=== PATIENT | female | born 1960 | race Caucasian/White ===

== ENCOUNTER 2016-10-11 12:47 | Emergency (ER) | payer MEDICARE ==
[2016-10-11 12:56] VITALS: BP 132/88
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
--- NOTE | 2016-10-11 14:06 | RAD ---
Indication: RIGHT distal fourth finger post fall. Comparison: July 03, 2014 Technique: 3 views RIGHT fourth finger REPORT AND IMPRESSION: Comminuted minimally displaced fracture tuft of the distal phalanx. Negative for additional fracture or articular malalignment. Distal soft tissue swelling.
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
== END 2016-10-11 14:15 | disposition home or self-care (01) ==
LOC: UCEAST 12:47
DX: S62.604A Fracture of unspecified phalanx of right ring finger, initial encounter for closed fracture (principal); S20.219A Contusion of unspecified front wall of thorax, initial encounter; V26 Motorcycle rider injured in collision with other nonmotor vehicle; F41.9 Anxiety disorder, unspecified
CPT/HCPCS: 73140; 99212; G0463

== ENCOUNTER 2018-09-17 17:30 | Emergency (ER) | payer MEDICARE ==
[2018-09-17 18:03] VITALS: BP 124/84
--- NOTE | 2018-09-17 18:28 | UC ---
General HPI - HPI Summary HPI Summary: RN notes triage - C/O FATIGUE TWO WEEKS AGO (THAT RESOLVED) AND PAIN IN RIGHT FOOT AND HEEL X1 WEEK. PT STATES SHE HAD A TICK ON HERSELF THAT BIT HER (BUT DID NOT ATTACH) ~3 WEEKS AGO. ALSO C/O LEFT ANKLE PAIN THAT STARTED LAST NIGHT. 58 yo female c/o pain in R foot, progressive over the last week. Also last couple days has started to have similar pain starting in L post ankle. She is concerned that may be related to a tick bite, that she sustained 2-3 weeks ago. Bite was on ant abdomen, not sure of type / length of time exactly. Shortly afterwards, Ms. Dunaway had apprx 5 days of extreme exhaustion, unlike anything she has felt before. Has hx discoid lupus, but not sx as above, and no recent new issues. No sob / cp. No new abd issues. No fever /chills. + rash for a few days at site of tick bite. No b/b issues reported. No new p/d/ w. Some symptomatic varicosities in both legs. Notes that her daughter was dx 'd with lyme with similar lower ext pain last year. R 5th finger - fell at [employer] apprx 2 weeks ago. Injured R 5th finger, still hurts to move. Pt is R handed. - History of Current Complaint Chief Complaint: UCLowerExtremity Stated Complaint: FOOT PAIN Time Seen by Provider: 09/17/18 18:28 Hx Obtained From: Patient Hx Last Menstrual Period: menopause Pain Intensity: 8 - Allergy/Home Medications Allergies/Adverse Reactions: Allergies Allergy/AdvReac Type Severity Reaction Status Date / Time No Known Allergies Allergy Verified 09/17/18 18:02 Home Medications: Home Medications Aspirin 81 mg CHEW TAB* [Aspirin Low Dose TAB*] 162 mg PO ONCE PRN 09/17/18 [ History Confirmed 09/17/18] PMH/Surg Hx/FS Hx/Imm Hx Previously Healthy: Yes - see hpi - Surgical History Surgical History: None - Family History Known Family History: Positive: None - see hpi - Social History Alcohol Use: Occasionally Substance Use Type: None Smoking Status (MU): Former Smoker Review of Systems All Other Systems Reviewed And Are Negative: Yes Constitutional: Positive: Other - see hpi Skin: Positive: Other Eyes: Positive: Negative ENT: Positive: Negative Respiratory: Positive: Negative Cardiovascular: Positive: Negative Gastrointestinal: Positive: Negative Genitourinary: Positive: Negative Motor: Positive: Other - see hpi Neurovascular: Positive: Other - see hpi Musculoskeletal: Positive: Other: - see hpi Neurological: Positive: Other - see hpi Psychological: Positive: Negative Is Patient Immunocompromised?: No Physical Exam Triage Information Reviewed: Yes Appearance: Well-Appearing, Well-Nourished Vital Signs: Initial Vital Signs Temp 97.9 F 09/17/18 17:57 Pulse 76 09/17/18 17:57 Resp 16 09/17/18 17:57 BP 124/84 09/17/18 17:57 Pulse Ox 100 09/17/18 17:57 Vital Signs Reviewed: Yes Eye Exam: Normal ENT Exam: Normal Neck exam: Normal - no acute c/o Respiratory Exam: Normal Respiratory: Positive: Chest non-tender, Lungs clear, Normal breath sounds, No respiratory distress, No accessory muscle use Cardiovascular Exam: Normal Cardiovascular: Positive: RRR, No Murmur, Pulses Normal, Brisk Capillary Refill Abdominal Exam: Normal Abdomen Description: Positive: Nontender Musculoskeletal Exam: Other - R 5th finger distal deformity and redness and dip tenderness. Distal sens + LT, CR is good R footwear stitcher plantar heel, no rash. L plantar post achilles mild tender. Both feet warm to touch. + venous varicosities and mild edema ble, but without calf pain Neurological Exam: Normal - grossly nonfocal Psychological Exam: Normal - conversing easily and appropriately Skin Exam: Normal - no acute visible or reported rash Course/Dx - Course Course Of Treatment: Reviewed xrays with pt. + finger fx dip, subacute Feet xrays - nad except djd Labs drawn. Will f/u PCP. Pt is very concerned about lyme. Will check and rx now. Reviewed coa / tx plan. Questions as posed answered to the best of my ability. - Diagnoses Provider Diagnosis: Tick bite, Foot pain, Finger fracture, right Discharge - Sign-Out/Discharge Documenting (check all that apply): Patient Departure All imaging exams completed and their final reports reviewed: No - Discharge Plan Condition: Stable Disposition: HOME Prescriptions: DOXYcycline CAP(*) [DOXYcycline 100MG CAP(*)] 100 mg PO BID 28 Days #56 cap Ibuprofen TAB* [Motrin TAB* 600 MG] 600 mg PO Q8H PRN #30 tab PRN Reason: Pain Patient Education Materials: Lyme Disease (ED), Finger Fracture (ED), Tick Bite (ED) Referrals: Romy Cain MD [Primary Care Provider] - Mark Miles MD [Medical Doctor] - Additional Instructions: Please follow up with your primary care physician, call Thursday for appointment this week. Please go to the Emergency Department for any worse or new problems. I recommend that you follow up with a [employer] (foot doctor), for your foot pain and footwear recommendation(s). Follow up with orthopedic doctor, call on Thursday for appointment this week, regarding your finger. Splint until otherwise advised by orthopedic surgeon. Elevate legs frequently throughout the day. Minimize weight bearing. Cane may be helpful. - Billing Disposition and Condition Condition: STABLE Disposition: Home
[2018-09-17] MEDS ORDERED: DOXYcycline CAP(*) 100 MG PO ONE (20:31)
[2018-09-17] MEDS ORDERED: Ibuprofen TAB* 600 MG PO ONE (20:37)
--- NOTE | 2018-09-19 16:16 | UC ---
- Progress Note Progress Note: was prescribed doxycycline for possible lyme, lyme testing came back negative. Recommend stopping the antibioitc and following up with her PCP. Course/Dx - Diagnoses Provider Diagnoses: Tick bite, Foot pain, Finger fracture, right Discharge - Sign-Out/Discharge Documenting (check all that apply): Post-Discharge Follow Up All imaging exams completed and their final reports reviewed: No - Discharge Plan Condition: Stable Disposition: HOME Prescriptions: DOXYcycline CAP(*) [DOXYcycline 100MG CAP(*)] 100 mg PO BID 28 Days #56 cap Ibuprofen TAB* [Motrin TAB* 600 MG] 600 mg PO Q8H PRN #30 tab PRN Reason: Pain Patient Education Materials: Lyme Disease (ED), Finger Fracture (ED), Tick Bite (ED) Referrals: Mark Miles MD [Medical Doctor] - Romy Cain MD [Primary Care Provider] - Additional Instructions: Please follow up with your primary care physician, call Thursday for appointment this week. Please go to the Emergency Department for any worse or new problems. I recommend that you follow up with a Director Trade (foot doctor), for your foot pain and footwear recommendation(s). Follow up with orthopedic doctor, call on Thursday for appointment this week, regarding your finger. Splint until otherwise advised by orthopedic surgeon. Elevate legs frequently throughout the day. Minimize weight bearing. Cane may be helpful. - Billing Disposition and Condition Condition: STABLE Disposition: Home
== END 2018-09-17 21:00 | disposition home or self-care (01) ==
LOC: UCEAST 17:30
DX: S62.606A Fracture of unspecified phalanx of right little finger, initial encounter for closed fracture (principal); W18.30XA Fall on same level, unspecified, initial encounter; Y93.89 Activity, other specified; Y92.833 Campsite as the place of occurrence of the external cause; Y99.8 Other external cause status; M25.572 Pain in left ankle and joints of left foot; Z87.891 Personal history of nicotine dependence; Z79.82 Long term (current) use of aspirin
CPT/HCPCS: 36415; 73140; 85652; 86140; 86618; 86666; 86753; 99213; A9270-GY; G0463

== ENCOUNTER 2019-04-19 13:33 | Emergency (ER) | payer MEDICARE ==
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
[2019-04-19 15:53] VITALS: BP 130/80
== END 2019-04-19 15:54 | disposition home or self-care (01) ==
LOC: UCEAST 13:33
DX: R05 Cough (principal); S22.32XA Fracture of one rib, left side, initial encounter for closed fracture; J98.11 Atelectasis; R91.8 Other nonspecific abnormal finding of lung field; Z87.891 Personal history of nicotine dependence; W00.0XXA Fall on same level due to ice and snow, initial encounter; Y92.9 Unspecified place or not applicable
CPT/HCPCS: 71046; 99212; G0463

== ENCOUNTER 2019-04-20 17:39 | Emergency (ER) | payer MEDICARE ==
--- NOTE | 2019-04-20 18:14 | ED ---
Shortness of Breath - HPI Summary HPI Summary: 58 year old F presenting to [facility] accompanied by complains of worsening productive cough and shortness of breath since yesterday 04/19/2019, and fever since today 04/20/2019. Patient states she slipped on black ice and fell on to her left chest Thursday04/11/2019. Was seen in [place] after the fall and was told she fractured 1 rib on the left. Developed productive cough yesterday 2019. Was seen at [facility] yesterday 04/19/2019 PM, had CXR done, found out she actually has 4 rib fractures on the left, was told she might have pneumonia. She was started on Z pack. Patient complaining of worsening left rib pain. The patient rates the pain 7/10 in severity. Symptoms aggravated by nothing. Symptoms alleviated by ibuprofen. Medications reviewed. No hx diabetes , hypertension, DVT, PE, asthma. Former smoker. - History of Current Complaint Chief Complaint: EDShortnessOfBreath Time Seen by Provider: 04/20/19 18:07 Hx Obtained From: Patient Onset/Duration: Lasting Days - 1, Still Present Current Severity: Moderate - 7/10 Aggravating Factors: Nothing Alleviating Factors: OTC Meds - Allergy/Home Medications Allergies/Adverse Reactions: Allergies Allergy/AdvReac Type Severity Reaction Status Date / Time No Known Allergies Allergy Verified 04/20/19 18:19 Home Medications: Home Medications Hydrocodone/Acetaminophen [Hydrocodone-Acetamin 5-325 mg] 1 tab PO Q4H PRN MDD 6 04/20/19 [History Confirmed 04/20/19] PMH/Surg Hx/FS Hx/Imm Hx Endocrine/Hematology History: Denies: Hx Diabetes Cardiovascular History: Denies: Hx Hypertension, Hx Pacemaker/ICD Respiratory History: Denies: Hx Asthma Sensory History: Denies: Hx Hearing Aid Psychiatric History: Reports: Hx Panic Disorder - Cancer History Hx Chemotherapy: No Hx Radiation Therapy: No - Surgical History Surgery Procedure, Year, and Place: colonoscopy Infectious Disease History: No Infectious Disease History: Denies: Hx Clostridium Difficile, Hx Hepatitis, Hx Human Immunodeficiency Virus (HIV), Hx of Known/Suspected MRSA, Hx Shingles, Hx Tuberculosis, Hx Known/ Suspected VRE, Hx Known/Suspected VRSA, History Other Infectious Disease, Traveled Outside the [place] in Last 30 Days - Family History Known Family History: Positive: Non-Contributory Family History: NEG: Breast CA - Social History Alcohol Use: Occasionally Substance Use Type: Reports: None Hx Tobacco Use: Yes Smoking Status (MU): Former Smoker Review of Systems Positive: Fever Positive: Shortness Of Breath, Cough Positive: Other - left rib pain All Other Systems Reviewed And Are Negative: Yes Physical Exam - Summary Physical Exam Summary: Constitutional: Well-developed, Well-nourished, Alert. (-) Distressed Skin: Warm, Dry HENT: Normocephalic; Atraumatic Eyes: Conjunctiva normal Neck: Musculoskeletal ROM normal neck. (-) JVD, (-) Stridor, (-) Tracheal deviation Cardio: Rhythm regular, rate normal, Heart sounds normal; Intact distal pulses; The pedal pulses are 2+ and symmetric. Radial pulses are 2+ and symmetric. (-) Murmur Pulmonary/Chest wall: Effort normal. (-) Respiratory distress, (-) Wheezes, (-) Rales; left lateral chest wall tenderness upon palpation Abd: Soft, (-) tenderness, (-) Distension, (-) Guarding, (-) Rebound Musculoskeletal: (-) Edema Lymph: (-) Cervical adenopathy Neuro: Alert, Oriented x3 Psych: Mood and affect Normal Triage Information Reviewed: Yes Vital Signs On Initial Exam: Initial Vitals Temp Pulse Resp BP Pulse Ox 99.1 F 99 18 149/97 99 04/20/19 17:45 04/20/19 17:45 04/20/19 17:45 04/20/19 17:45 04/20/19 17:45 Vital Signs Reviewed: Yes Procedures - Sedation Patient Received Moderate/Deep Sedation with Procedure: No Diagnostics - Vital Signs Vital Signs Temp Pulse Resp BP Pulse Ox 04/20/19 17:45 99.1 F 99 18 149/97 99 - Laboratory Lab Statement: Any lab studies that have been ordered have been reviewed, and results considered in the medical decision making process. - Radiology CXR Radiology Interpretation Completed By: ED Physician Summary of Radiographic Findings: left sided rib fractures noted. x-ray overall similar to yesterday's CXR. no consolidation. no pneumothorax. pending official report Course/Dx - Course Course Of Treatment: 58 y/o F complains of fever since today 04/20/2019, worsening productive cough and shortness of breath since yesterday 04/19/2019, and worsening left rib pain after slipping on black ice and falling on to her left chest Thursday04/11/2019. Was seen in [place] after the fall. Was seen at [facility] yesterday 04/19/2019 PM, had CXR done, was told she has 4 rib fractures on the left and possible pneumonia. She was started on Z pack. Upon exam, the patient has left lateral chest wall tenderness upon palpation. Left sided rib fractures noted on CXR. X-ray overall similar to yesterday's CXR. No consolidation. No pneumothorax. In the ED course, patient was given lidocaine patch. Patient will be discharged home with prescription for lidocaine patch and follow up from her primary care provider in 2-3 days. Patient was instructed to return to Emergency Department for new or worsening symptoms. Patient understands and is agreeable to this plan. - Diagnoses Provider Diagnoses: Dyspnea, Rib fractures Discharge ED - Sign-Out/Discharge Documenting (check all that apply): Patient Departure - Discharge Plan Condition: Stable Disposition: HOME Prescriptions: Lidocaine PATCH 5%* [Lidoderm 5% Patch*] 1 patch TRANSDERM DAILY #30 patch Patient Education Materials: Rib Fracture (ED), Dyspnea (ED) Referrals: Romy Cain MD [Primary Care Provider] - 2 Days Additional Instructions: Follow up with your primary care provider in 2-3 days. Return to the Emergency Department for new or worsening symptoms. - Billing Disposition and Condition Condition: STABLE Disposition: Home - Attestation Statements Document Initiated by Jeysonibe: Yes Documenting Scribe: Jen Guadalupe Provider For Whom Bereket is Documenting (Include Credential): Corrie Cagle DO Scribe Attestation: Jen Chong, scribed for Corrie Cagle DO on 04/20/19 at 1958. Scribe Documentation Reviewed: Yes Provider Attestation: The documentation as recorded by the Jen chavez accurately reflects the service I personally performed and the decisions made by , Corrie Cagle DO Status of Scribalison Document: Viewed
[2019-04-20] MEDS ORDERED: Lidocaine PATCH 5%* 1 PATCH TRANSDERM ONE (18:19)
[2019-04-20] MEDS ORDERED: Ibuprofen TAB* 400 MG PO ONE (20:21)
[2019-04-20 20:26] VITALS: BP 139/97
[2019-04-20] MEDS ORDERED: Lidocaine Patch REMOVE* 1 NOTE MISC SCH (21:00)
== END 2019-04-20 20:25 | disposition home or self-care (01) ==
LOC: ED 17:39
DX: S22.42XA Multiple fractures of ribs, left side, initial encounter for closed fracture (principal); W00.0XXA Fall on same level due to ice and snow, initial encounter; Y92.9 Unspecified place or not applicable; J90 Pleural effusion, not elsewhere classified; Z87.891 Personal history of nicotine dependence
CPT/HCPCS: 71046; 99283; A9270-GY

== ENCOUNTER 2019-04-29 16:21 | Emergency (ER) | payer MEDICARE ==
[2019-04-29 16:36] VITALS: BP 142/92
--- NOTE | 2019-04-29 17:57 | UC ---
Cardiac HPI - HPI Summary HPI Summary: 58-year-old woman comes in with left-sided posterior chest pain, cough, chest congestion. Patient slipped and fell on ice 3 weeks ago and broke for ribs on the left side. The last 2 weeks she's been having chest congestion to include green sputum production. She has not been able to get into her primary care physician. She has used up all the pain medications that were prescribed in the emergency department. She's been alternating ibuprofen and hydrocodone. She ran out of her hydrocodone about 4 days ago. No fevers. She has been using the incentive spirometer. Patient has not seen any rash. - History of Current Complaint Chief Complaint: UCRespiratory Stated Complaint: RIB PAIN Time Seen by Provider: 04/29/19 17:19 Hx Last Menstrual Period: menopause Pain Intensity: 10 - Allergy/Home Medications Allergies/Adverse Reactions: Allergies Allergy/AdvReac Type Severity Reaction Status Date / Time No Known Allergies Allergy Verified 04/29/19 16:34 Home Medications: Home Medications LORazepam TAB(*) [Ativan TAB(*)] 0.5 mg PO TID 10/11/12 [History Confirmed 04/29] Sertraline* [Zoloft*] 100 mg PO DAILY 03/04/18 [History Confirmed 04/29/19] Ibuprofen TAB* [Motrin TAB* 600 MG] 600 mg PO Q8H PRN #30 tab 09/17/18 [Rx Confirmed 04/29/19] DOXYcycline CAP(*) [DOXYcycline 100MG CAP(*)] 100 mg PO BID #20 cap MDD 6 [Rx] HYDROcodone/ACETAMIN 5-325 MG* [Sagle 5-325 TAB*] 1 tab PO Q4H PRN #30 tab MDD 6 04/29/19 [Rx] PMH/Surg Hx/FS Hx/Imm Hx Previously Healthy: Yes - Surgical History Surgical History: Yes Surgery Procedure, Year, and Place: colonoscopy - Family History Known Family History: Positive: Non-Contributory Family History: NEG: Breast CA - Social History Alcohol Use: None Substance Use Type: None Smoking Status (MU): Former Smoker Review of Systems All Other Systems Reviewed And Are Negative: Yes Constitutional: Positive: Other - see hpi Skin: Positive: Negative Eyes: Positive: Negative ENT: Positive: Negative Respiratory: Positive: Other - see hpi Cardiovascular: Positive: Other - see hpi Gastrointestinal: Positive: Negative Motor: Positive: Negative Neurovascular: Positive: Negative Musculoskeletal: Positive: Negative Neurological/Mental Status: Positive: Negative Psychological: Positive: Negative Is Patient Immunocompromised?: No Physical Exam Triage Information Reviewed: Yes Appearance: Well-Appearing, Well-Nourished, Pain Distress - mild Vital Signs: Initial Vital Signs Temp 98.3 F 04/29/19 16:29 Pulse 74 04/29/19 16:29 Resp 18 04/29/19 16:29 BP 142/92 04/29/19 16:29 Pulse Ox 98 04/29/19 16:29 Vital Signs Reviewed: Yes Eye Exam: Normal Eyes: Positive: Conjunctiva Clear ENT: Positive: Pharynx normal Neck: Positive: Supple Respiratory: Positive: Lungs clear, Normal breath sounds, No respiratory distress, Other: - Tenderness to palpation left posterior ribs. The thoracic spine is nontender to palpation. Cardiovascular: Positive: RRR Musculoskeletal: Positive: Strength Intact, ROM Intact Neurological: Positive: Alert, Muscle Tone Normal Psychological: Positive: Age Appropriate Behavior Skin Exam: Normal - I did not see any rash on the left posterior chest. - Assessment/Plan Course Of Treatment: Supervisor Enrobing: Steve Bledsoe ([id number]) Liner Worker: DARYL (DARYL) Report Date: 04/29/2019 17:14:00 Report Status: Final Start of Report Content Patient Name: GLORIA SHANE V Medical Record#: [id number] Ordering Physician: Rolo Granado MD Acct.#: [id number] : 08/1960 Age: 58 Sex: F Location: [facility] Exam Date: 04/29/19 1642 ADM Status: REG ER Order Information: CHEST PA LAT 2 VWS Accession Number: [id number] CPT: 88978 INDICATION: Cough. Recent left rib fractures COMPARISON: April 20, 2019 chest radiograph TECHNIQUE: Dual-energy PA and lateral views of the chest were obtained. FINDINGS: The lungs are clear. There is no pleural effusion or pneumothorax. The cardiomediastinal silhouette is within normal limits. The upper abdominal contents are normal. The left-sided rib fractures are redemonstrated. IMPRESSION: 1. No acute cardiopulmonary process by radiograph. 2. Redemonstrated left rib fractures. <Electronically signed by Steve Bledsoe MD in OV> 04/29/191709 Dictated By: Steve Bledsoe MD Dictated Date/Time: 04/29/191707 Transcribed Date/Time: 04/29/191707 Copy to: CC:[facility]; Romy Cain MD; Rolo Granado MD Imaging - [facility] [address] [place] [address] ph ) ph ([phone]) ph ([phone]) End of Report Content I discussed the x-rays with the patient. Patient's been having bronchitis symptoms with green sputum for 2 weeks therefore I will treat with doxycycline. Wrote a prescription for more hydrocodone which she can alternate with the ibuprofen [id number]. We discussed continuing to use the incentive spirometer. Also discussed [id number] medicines such as guaifenesin to be used to thin the secretions. Also using steam to help in the secretions. Patient will follow-up with her primary care doctor get reevaluated sooner if worse or any questions or concerns. - Clinical Impression Provider Diagnosis: Left-sided chest pain, Bronchitis, Left rib fracture Discharge ED - Sign-Out/Discharge Documenting (check all that apply): Patient Departure All imaging exams completed and their final reports reviewed: Yes - Discharge Plan Condition: Stable Disposition: HOME Prescriptions: DOXYcycline CAP(*) [DOXYcycline 100MG CAP(*)] 100 mg PO BID #20 cap MDD 6 HYDROcodone/ACETAMIN 5-325 MG* [Sagle 5-325 TAB*] 1 tab PO Q4H PRN #30 tab MDD 6 PRN Reason: Pain - Moderate Patient Education Materials: Rib Fracture (ED), Acute Bronchitis (ED) Referrals: Romy Cain MD [Primary Care Provider] - Additional Instructions: FOLLOW UP WITH YOUR DOCTOR. USE THE INCENTIVE SPIROMETER EVERY 4 HOURS OR MORE FREQUENTLY TO HELP AVOID A RESPIRATORY INFECTION. You can use [id number] products that contain guaifenesin to help thin the respiratory secretions. GET REEVALUATED SOONER IF NOT IMPROVED OR WORSE; PAIN, FEVER, SHORTNESS OF BREATH, YOU FEEL ILL OR ANY QUESTIONS OR CONCERNS. - Billing Disposition and Condition Condition: STABLE Disposition: Home
== END 2019-04-29 18:05 | disposition home or self-care (01) ==
LOC: UCEAST 16:21
DX: J40 Bronchitis, not specified as acute or chronic (principal); S22.32XA Fracture of one rib, left side, initial encounter for closed fracture; W00.0XXA Fall on same level due to ice and snow, initial encounter; Y92.9 Unspecified place or not applicable; Z87.891 Personal history of nicotine dependence
CPT/HCPCS: 71046; 99212; G0463